=== PATIENT | female | born 1980 | race Two or more races ===

== ENCOUNTER 2021-10-15 00:10 | Emergency (ER) | payer OTHER ==
[~2021-10-15] VITALS: Ht 144.8 cm; Wt 80.7 kg
[~2021-10-15 00:10] MED LIST: CIPRO500 MG; COZAAR100 MG; NAPRELAN500 MG PO; NORVASC5 MG; OMNIPRED10 ML OP; ORENCIA 25250 MG/VIA IV; PRILOSEC20 MG PO; SINGULAIR10 MG PO
[2021-10-15] MEDS ORDERED: CARAFATE1 GM PO (05:50)
[2021-10-15] MEDS ORDERED: PEPCID AC20 MG PO (05:50)
[2021-10-15] MEDS ORDERED: PHENERGAN25 MG PO (05:50)
[2021-10-15] MEDS ORDERED: INTESTINEX680 M2 PO (06:17)
[2021-10-15] MEDS ORDERED: CLINDAMYCIN HC300 MG PO (06:17)
== END 2021-10-15 06:38 | disposition home or self-care (01) ==
LOC: ER 00:10
DX: B34.9 Viral infection, unspecified (principal); K52.9 Noninfective gastroenteritis and colitis, unspecified; Z03.818 Encounter for observation for suspected exposure to other biological agents ruled out